=== PATIENT | male | born 1990 | race Hispanic/Latino ===

== ENCOUNTER 2019-11-02 09:30 | Emergency (ER) | payer SELFPAY ==
[2019-11-02 10:07] LABS: Basophils # (Auto) 0.1 K/mm3 (0.0-0.1); Basophils % (Auto) 0.7 % (0.0-1.8); Eosinophils # (Auto) 0.2 K/mm3 (0.0-0.4); Eosinophils % (Auto) 2.1 % (0.0-4.3); Hematocrit 45.1 % (35.5-45.6); Hemoglobin 15.6 gm/dl (11.8-15.2); Lymphocytes # (Auto) 2.4 K/mm3 (1.2-5.4); Mean Corpuscular HGB Conc 35 % (32-34); Mean Corpuscular Volume 87 fl (84-94); Monocytes # (Auto) 0.9 K/mm3 (0.0-0.8); Monocytes % (Auto) 8.2 % (0.0-7.3); Platelet Count 261 K/mm3 (140-440); Red Blood Count 5.16 M/mm3 (3.65-5.03); Red Cell Distribution Width 13.2 % (13.2-15.2)
[2019-11-02 10:33] LABS: Alanine Aminotransferase 20 units/L (7-56); Albumin 4.6 g/dL (3.9-5); BUN/Creatinine Ratio 14; Blood Urea Nitrogen 13 mg/dL (9-20); Calcium 9.5 mg/dL (8.4-10.2); Hemolysis Index 26
[2019-11-02] MEDS ORDERED: ALUM-MAG HYDROXIDE-SIMETHICONE 200-200-20MG/5ML ORAL LIQD 30 ML PO ONE (11:39)
[2019-11-02] MEDS ORDERED: LORazepam 1 MG TAB PO ONE (11:41)
--- NOTE | 2019-11-02 11:48 | Emergency Department Report ---
ED Psych HPI - General Chief Complaint: GI Bleed Stated Complaint: STOMACH PAIN Time Seen by Provider: 11/02/19 11:33 Source: patient Mode of arrival: Ambulatory Limitations: No Limitations - History of Present Illness Initial Comments: Mr. Vivas is a 29 yo male with hx of PTSD, anxiety and peptic ulcer disease who presents with epigastric pain and blood in stool. Bright red blood on brown stool. Has had poor appetite. No hematemesis. Gradual onset of epigastric pain 1 week ago. Pain is persistent. Pain is worse with p.o. intake. Denies vomiting. Mild nausea. No radiation. He also desires to evaluated for anxiety and suicidal ideation. He does not have a plan to harm himself. He normally takes Trazodone and Klonopin. He desires to restart these medications. MD Complaint: suicidal ideation, feels depressed, other (Feels anxious) -: Gradual, week(s) (Several) Associated Psychiatric Symptoms: depression, suicidal ideation History of same: Yes Quality: constant Worsens With: none Context: not taking psychiatric Associated Symptoms: other (Abdominal painBlood per rectum) Treatments Prior to Arrival: none - Related Data Previous Rx's Medication Instructions Recorded Last Taken Type Famotidine [Pepcid] 20 mg PO BID 30 Days #60 tablet 11/02/19 Unknown Rx Allergies Allergy/AdvReac Type Severity Reaction Status Date / Time No Known Allergies Allergy Unverified 11/02/19 09:31 ED Review of Systems ROS: Stated complaint: STOMACH PAIN Other details as noted in HPI Comment: All other systems reviewed and negative Constitutional: denies: fever Eyes: denies: eye discharge Gastrointestinal: abdominal pain, hematochezia. denies: nausea, vomiting Psychiatric: anxiety, depression, suicidal thoughts ED Past Medical Hx - Past Medical History Previous Medical History?: Yes Hx Psychiatric Treatment: Yes (PTSD, anxiety) Additional medical history: " BLEEDING ULCER." - Surgical History Past Surgical History?: No - Social History Smoking Status: Current Some Day Smoker Substance Use Type: None - Medications Home Medications: Home Medications Medication Instructions Recorded Confirmed Last Taken Type Famotidine [Pepcid] 20 mg PO BID 30 Days #60 tablet 11/02/19 Unknown Rx ED Physical Exam - General Limitations: No Limitations General appearance: alert, in no apparent distress - Head Head exam: Present: atraumatic, normocephalic - Eye Eye exam: Present: normal appearance - ENT ENT exam: Present: mucous membranes moist - Neck Neck exam: Present: normal inspection, full ROM - Respiratory Respiratory exam: Present: normal lung sounds bilaterally. Absent: respiratory distress, wheezes, rales, rhonchi, stridor - Cardiovascular Cardiovascular Exam: Present: regular rate, normal rhythm, normal heart sounds. Absent: systolic murmur, diastolic murmur, rubs, gallop - GI/Abdominal GI/Abdominal exam: Present: soft, normal bowel sounds. Absent: distended, tenderness, guarding, rebound - Rectal Rectal exam: Present: deferred - Extremities Exam Extremities exam: Present: normal inspection - Back Exam Back exam: Present: normal inspection - Neurological Exam Neurological exam: Present: alert, oriented X3 - Psychiatric Psychiatric exam: Present: depressed, flat affect, suicidal ideation - Skin Skin exam: Present: warm, dry, intact, normal color. Absent: rash ED Course Vital Signs 11/02/19 11/02/19 11/02/19 09:31 11:22 11:31 Temperature 98.5 F 97.7 F Pulse Rate 114 H 100 H Respiratory 20 22 22 Rate Blood Pressure 127/82 Blood Pressure 123/87 [Left] O2 Sat by Pulse 98 99 99 Oximetry ED Medical Decision Making - Lab Data Result diagrams: 11/02/19 09:52 11/02/19 09:52 Laboratory Results - last 24 hr 11/02/19 11/02/19 11/02/19 09:52 09:52 12:44 WBC 11.3 H RBC 5.16 H Hgb 15.6 H Hct 45.1 MCV 87 MCH 30 MCHC 35 H RDW 13.2 Plt Count 261 Lymph % (Auto) 21.0 [place] % (Auto) 8.2 H Eos % (Auto) 2.1 Baso % (Auto) 0.7 Lymph # 2.4 [place] # 0.9 H Eos # 0.2 Baso # 0.1 Seg Neutrophils % 68.0 Seg Neutrophils # 7.7 Sodium 140 Potassium 3.5 L Chloride 103.2 Carbon Dioxide 22 Anion Gap 18 BUN 13 Creatinine 0.9 Estimated GFR > 60 BUN/Creatinine Ratio 14 Glucose 111 H Calcium 9.5 Total Bilirubin 1.40 H AST 22 ALT 20 Alkaline Phosphatase 79 Total Protein 8.2 Albumin 4.6 Albumin/Globulin Ratio 1.3 TSH 0.510 Salicylates Acetaminophen Plasma/Serum Alcohol 11/02/19 11/02/19 11/02/19 12:44 12:44 12:44 WBC RBC Hgb Hct MCV MCH MCHC RDW Plt Count Lymph % (Auto) [place] % (Auto) Eos % (Auto) Baso % (Auto) Lymph # [place] # Eos # Baso # Seg Neutrophils % Seg Neutrophils # Sodium Potassium Chloride Carbon Dioxide Anion Gap BUN Creatinine Estimated GFR BUN/Creatinine Ratio Glucose Calcium Total Bilirubin AST ALT Alkaline Phosphatase Total Protein Albumin Albumin/Globulin Ratio TSH Salicylates < 0.3 L Acetaminophen < 5.0 L Plasma/Serum Alcohol 0.02 - Radiology Data Radiology results: report reviewed CT abdomen pelvis: No acute abnormality identified - Medical Decision Making 1. Epigastric pain: Differential diagnosis includes peptic ulcer disease, IBS I do not see signs of active bleeding. H&H is normal. 2. Suicidal ideation anxiety without plan to harm himself. Awaiting treatment recommendations by psychiatric team. Patient is medically clear for psychiatric care. He does not currently have a life or limb threatening condition which needs further treatment or evaluation. I was informed by treatment plant operator that Mr. Vivas plans to kill his girlfriend and then hang himself. Consequently I will place this gentleman on involuntary protocol using 1013 form. Awaiting placement to inpatient psychiatric center. Critical care attestation.: If time is entered above; I have spent that time in minutes in the direct care of this critically ill patient, excluding procedure time. ED Disposition Clinical Impression: Peptic ulcer disease, Rectal bleeding, Anxiety, PTSD (post-traumatic stress disorder), Suicidal ideation, Homicidal ideation Disposition: [id number]/TX-70 ANOTHER TYPE HLTHCARE Is pt being admited?: No Does the pt Need Aspirin: No Condition: Stable Prescriptions: Famotidine [Pepcid] 20 mg PO BID 30 Days #60 tablet Referrals: BETI RANKIN MD [Staff Physician] - 3-5 Days Forms: Accompanied Note
--- NOTE | 2019-11-02 12:25 | Cat Scan Report ---
CT ABDOMEN AND PELVIS WITHOUT CONTRAST HISTORY: epigastric pain hx of PUD. COMPARISON: None. TECHNIQUE: CT images of the abdomen and pelvis were obtained without administration of intravenous co ntrast. All CT scans at this location are performed using CT dose reduction for ALARA by means of au tomated exposure control. FINDINGS: Lungs/bones: The lung bases are clear. No acute osseous abnormality. Abdomen/pelvis: The liver, gallbladder, spleen, pancreas, adrenals, kidneys, and proximal GI tract a ppear unremarkable. The urinary bladder and prostate appear normal with no pelvic free fluid. No acute colonic abnormalit y. The terminal ileum and the appendix appear normal. IMPRESSION: 1. No acute abnormality identified. Signer Name: Sunil Padron MD Signed: 11/02/2019 12:20 PM Workstation Name: [id number]
[2019-11-02] MEDS: ACETAMINOPHEN 500 MG TAB PO ONE ×2 (12:38→14:51)
[2019-11-02 14:22] LABS: Bilirubin,Urine NEG (Negative); Blood,Urine NEG (Negative); Calcium Oxalate Crystals,Urine 2+; Color,Urine Amber (Yellow); Mucus,Urine 3+ /HPF
[2019-11-02 14:25] LABS: Benzodiazepines Screen,Urine PRESUMPTIVE NEGATIVE; Cocaine Screen,Urine PRESUMPTIVE NEGATIVE; Methadone Screen,Urine PRESUMPTIVE NEGATIVE; Opiate Screen,Urine PRESUMPTIVE NEGATIVE
[2019-11-02 14:37] LABS: Amphetamine Screen,Urine PRESUMPTIVE POSITIVE; Cannabinoid Screen,Urine PRESUMPTIVE POSITIVE
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
[2019-11-03] MEDS ORDERED: hydrOXYzine HCL 25 MG TAB PO STA (10:52)
[2019-11-03] MEDS ORDERED: MELATONIN 5 MG TAB PO PRN (10:52)
[2019-11-03] MEDS ORDERED: DULoxetine 20 MG CAP PO SCH (11:00)
[2019-11-03] MEDS ORDERED: traZODone 50 MG TAB PO SCH (22:00)
[2019-11-03] MEDS ORDERED: traZODone 100 MG TAB PO ONE (22:27)
[2019-11-04 01:48] VITALS: BP 121/66
--- NOTE | 2019-11-04 09:28 | Progress Note ---
Subjective - Reason for Consult Consult date: 11/04/19 Reason for consult: MHE Requesting physician: JUNG MORGAN - Chief Complaint Chief complaint: Per ED Nurse: Patient seen lying on reclining bed, calm, sleeping, no distress noted, will continue to monitor. Psych Progress: Patient seen and interviewed by me this A.M. Patient denies SI, HI, reports medication compliance. Says he spoke with partner yesterday and that also made him feel better, has no medication complaints and expresses interested in following up outpatient. Collateral: Partner called and made aware of patients HI, partner says they just recently moved from [place], in attestation to patients saying he moved from [place], partner states pt makes those threats towards her but since they had a miscarriage in August, they have been dealing with emotionally. Partner aware to call 911 if safety concerns. MENTAL STATUS EXAMINATION General Appearance and Behavior: Age appropriate, fair hygiene, wearing appropriate clothes, goodeye contact, cooperative with questioning and polite but irritable Cooperation: Participating/engaged Psychomotor Behavior: unremarkable and within normal limits Mood:Anxious, Depressed Affect and affective range: Congruent with mood Thought Process: Fluent/Logical Thought Content: Within reality,Flight of ideas, Hopelessness, Helplessness, Phobia and Paranoid Speech: Normal volume, Regular rate and rhythm Intellectual Functioning: Average Suicidal Ideation: Passive Homicidal Ideation: Passive Impulse Control:Unimpaired Insight and Judgment: Normal insight and judgment Memory: Normal Attention: Normal Orientation: Alert, oriented Assessment and Plan - Patient Problems (1) Substance induced mood disorder Current Visit: Yes Status: Acute (2) MDD (major depressive disorder) Current Visit: Yes Status: Acute (3) Bipolar 1 disorder, depressed, severe Current Visit: Yes Status: Acute RECOMMENDATIONS MEDICATIONS: To discharge home with safety plans Risks, benefits and alternatives of medications discussed with the patient, questions answered and consent obtained from patient. PSYCHOTHERAPY: Supportive psychotherapy provided MEDICAL: Per primary team DELIRIUM PRECAUTIONS: Please re-orient patient frequently, keep lights on during the day, and minimize benzodiazepines and opiates as these medications could worsen patient's confusion. 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 Please contact with any questions and/or concerns. Mental Status Exam - Vital signs Last Vital Signs Temp 98.8 F 11/04/19 01:44 Pulse 88 11/04/19 01:44 Resp 18 11/04/19 01:44 BP 121/66 11/04/19 01:44 Pulse Ox 98 11/04/19 01:44 Assessment and Plan - Patient Problems (1) Substance induced mood disorder Current Visit: Yes Status: Acute (2) MDD (major depressive disorder) Current Visit: Yes Status: Acute (3) Bipolar 1 disorder, depressed, severe Current Visit: Yes Status: Acute
== END 2019-11-04 11:19 | disposition home or self-care (01) ==
LOC: EEVIPCON 09:30 → ED 09:30
DX: F43.10 Post-traumatic stress disorder, unspecified (principal); F41.9 Anxiety disorder, unspecified; K27.9 Peptic ulcer, site unspecified, unspecified as acute or chronic, without hemorrhage or perforation; R45.851 Suicidal ideations; R45.850 Homicidal ideations; F17.200 Nicotine dependence, unspecified, uncomplicated
CPT/HCPCS: 36415; 74176; 80053; 80307; 80320; 81001; 84443; 85025; G0480